=== PATIENT | male | born 1970 | race Caucasian/White ===

== ENCOUNTER 2025-03-20 10:19 | Emergency (ER) | payer BC ==
[~2025-03-20] VITALS: Ht 177.8 cm; Wt 92.9 kg
[2025-03-20 10:58] LABS: VENOUS BASE EXCESS -1.3 (-2.0-2.0); VENOUS HCO3 23.7 MMOL/L (23.0-27.0); VENOUS O2 SATURATION 60.4 % (60.0-80.0); VENOUS PARTIAL PRESSURE CO2 40.8 mmHg (38.0-50.0); VENOUS PARTIAL PRESSURE O2 32.2 mmHg (30.0-50.0); VENOUS PH 7.382 UNITS (7.330-7.430); VENOUS STANDARD HCO3 22.4 MMOL/L; VENOUS TOTAL CO2 25.0 MMOL/L (24.0-28.0)
[2025-03-20 11:05] LABS: BASO # 0.1 10^3/uL (0.0-0.2); BASO % 1.6 % (0.0-1.0); EOS # 0.3 10^3/uL (0.0-0.5); EOS % 4.9 % (0.0-3.0); LYMPH # 2.1 10^3/uL (1.5-5.0); LYMPH % 30.6 % (24.0-44.0); MONO # 0.6 10^3/uL (0.0-0.8); MONO % 8.4 % (2.0-8.0); NEUTROPHILS # 3.7 10^3/uL (1.5-8.5); NEUTROPHILS % 54.2 % (36.0-66.0); PLATELET COUNT, AUTOMATED 249 10^3/uL (150-450)
[2025-03-20 11:34] LABS: ALT/SGPT 21 U/L (7.0-40); AST/SGOT 21 U/L (<34); CALCIUM LEVEL 9.9 MG/DL (8.5-10.1); CARBON DIOXIDE LEVEL 26 MMOL/L (20-31); CHLORIDE LEVEL 100 MMOL/L (98-107); CREATININE FOR GFR 1.07 MG/DL (0.70-1.30); GLOMERULAR FILTRATION RATE 83.0 (>56); POTASSIUM SERUM 4.1 MMOL/L (3.5-5.1); SODIUM LEVEL 138 MMOL/L (136-145)
[2025-03-20 11:35] LABS: THYROXINE (T4) 6.9 UG/DL (4.5-10.9)
[2025-03-20 11:36] LABS: INR 0.92
[2025-03-20] MEDS ORDERED: ISOVUE-370 76% 100 ML VIAL As Ordered ONE (12:31)
[2025-03-20] MEDS ORDERED: MECL-209 PO (16:19)
[2025-03-20] MEDS ORDERED: AMOX875T2 PO (18:27)
[2025-03-20 18:50] VITALS: BP 160/98; TEMP 97.1; O2SAT 97
== END 2025-03-20 18:59 | disposition home or self-care (01) ==
LOC: M ED 10:19
DX: R06.00 Dyspnea, unspecified (principal); R42 Dizziness and giddiness; I10 Essential (primary) hypertension; J45.909 Unspecified asthma, uncomplicated
CPT/HCPCS: 70450; 70544; 70547; 70551; 71045; 71275; 80048; 80076; 82803; 83880; 84436; 84443; 84484; 85025; 85610; 87486; 87581; 87633; 87798; 93005; 93041; 94760; 99285; Q9967

== ENCOUNTER → 2025-04-22 | Outpatient (CLI) | payer BC ==
[~2025-04-22] MED LIST: AMOX875T2 PO; MECL-209 PO
== END ==
LOC: M EKG 14:55
PROVIDERS: ATTEND Nurse Practitioner
DX: R07.9 Chest pain, unspecified (principal)

== ENCOUNTER → 2025-05-05 | Outpatient (CLI) | payer BC | LOC: M RAD 09:57 | PROVIDERS: ATTEND Physician Assistant Medical | DX: J32.4 Chronic pansinusitis (principal) ==